=== PATIENT | female | born 1940 | race Caucasian/White ===

== ENCOUNTER → 2017-02-24 | Outpatient (CLI) | payer MEDICARE ==
--- NOTE | 2017-02-24 16:32 | WOMENS IMAGING REPORT ---
EXAM DESCRIPTION: BILAT SCREENING MAMMO W/CAD COMPLETED DATE/TIME: 02/24/2017 9:24 am REASON FOR STUDY: SCREENING MAMMO Z12.31 ENCNTR SCREEN MAMMOGRAM FOR MALIGNANT NEOPLASM OF VIVIAN COMPARISON: Multiple since 2008 TECHNIQUE: Standard craniocaudal and mediolateral oblique views of each breast recorded using digita l acquisition. LIMITATIONS: None. FINDINGS: Findings present which are benign by mammographic criteria. No suspicious masses, calcifi cations or architectural distortion. Pertinent benign findings: Stable benign bilateral breast calcifications Read with the assistance of CAD. .[facility] - R2 Cenova Version 1.3 .[facility] - R2 Cenova Version 1.3 .[facility] - R2 Cenova Version 2.4 .[facility] - R2 Cenova Version 2.4 .[facility] - R2 Bench Molder Apprentice Version 9.2 Benign mammographic findings may include one or more of the following: Smooth masses, popcorn/rim/co arse calcifications, asymmetries, post-procedure changes, and lesions with long-standing stability. IMPRESSION: BENIGN MAMMOGRAPHIC FINDINGS. BIRADS 2 BREAST DENSITY: c. The breasts are heterogeneously dense, which may obscure small masses. BIRAD: 2 BENIGN FINDING(S) RECOMMENDATION: ROUTINE SCREENING Please consider bilateral screening tomosynthesis in February 2018 given heterogeneously dense tissu e. COMMENT: The patient has been notified of the results by letter per SA requirements. Additional no tification policies are in place for contacting patient with suspicious or incomplete findings. Quality ID #225: The [employer] recommends an annual screening mammogram for women aged 40 years or over. This facility utilizes a reminder system to ensure that all patients receive reminder letters, and/or direct phone calls for appointments. This includes reminders for routine scr eening mammograms, diagnostic mammograms, or other Breast Imaging Interventions when appropriate. Th is patient will be placed in the appropriate reminder system. The [employer] (ACR) has developed recommendations for screening MRI of the breast s in certain patient populations, to be used in conjunction with mammography. Breast MRI surveillanc e may be appropriate for women with more than 20% lifetime risk of developing breast cancer as deter mined by genetic testing, significant family history of the disease, or history of mantle radiation f or Hodgkins Disease. ACR Practice Guidelines 2008. TECHNICAL DOCUMENTATION: FINDING NUMBER: (1) ASSESSMENT: (1) JOB ID: [id number] [employer]- All Rights Reserved
== END ==
LOC: RAD 09:05
PROVIDERS: ATTEND Family Medicine
DX: Z12.31 Encounter for screening mammogram for malignant neoplasm of breast (principal)
CPT/HCPCS: 77067; G0202

== ENCOUNTER → 2018-03-09 | Outpatient (CLI) | payer MEDICARE ==
--- NOTE | 2018-03-09 15:59 | WOMENS IMAGING REPORT ---
EXAM DESCRIPTION: BILAT SCREENING MAMMO W/CAD COMPLETED DATE/TIME: 03/09/2018 9:59 am REASON FOR STUDY: BILATERAL SCREENING MAMMO /Z12.31 Z12.31 ENCNTR SCREEN MAMMOGRAM FOR MALIGNANT NE OPLASM OF VIVIAN COMPARISON: Multiple since 2008 TECHNIQUE: Standard craniocaudal and mediolateral oblique views of each breast recorded using [employer] l acquisition. LIMITATIONS: None. FINDINGS: Findings present which are benign by mammographic criteria. No suspicious masses, calcifi cations or architectural distortion. Pertinent benign findings: Stable bilateral breast parenchymal calcifications Read with the assistance of CAD. .[facility] - R2 Cenova Version 1.3 .[facility] Imaging - R2 Cenova Version 1.3 .[facility] - R2 Cenova Version 2.4 .[facility] [place] R2 Cenova Version 2.4 .[facility] - R2 Bisque Placer Version 9.2 Benign mammographic findings may include one or more of the following: Smooth masses, popcorn/rim/co arse calcifications, asymmetries, post-procedure changes, and lesions with long-standing stability. IMPRESSION: BENIGN MAMMOGRAPHIC FINDINGS. BIRADS 2 BREAST DENSITY: c. The breasts are heterogeneously dense, which may obscure small masses. BIRAD: 2 BENIGN FINDING(S) RECOMMENDATION: ROUTINE SCREENING Please continue yearly bilateral screening mammography/tomosynthesis in March 2019 COMMENT: The patient has been notified of the results by letter per SA requirements. Additional no tification policies are in place for contacting patient with suspicious or incomplete findings. Quality ID #225: The [employer] recommends an annual screening mammogram for women aged 40 years or over. This facility utilizes a reminder system to ensure that all patients receive reminder letters, and/or direct phone calls for appointments. This includes reminders for routine scr eening mammograms, diagnostic mammograms, or other Breast Imaging Interventions when appropriate. Th is patient will be placed in the appropriate reminder system. The [employer] (ACR) has developed recommendations for screening MRI of the breast s in certain patient populations, to be used in conjunction with mammography. Breast MRI surveillanc e may be appropriate for women with more than 20% lifetime risk of developing breast cancer as deter mined by genetic testing, significant family history of the disease, or history of mantle radiation f or Hodgkins Disease. ACR Practice Guidelines 2008. TECHNICAL DOCUMENTATION: FINDING NUMBER: (1) ASSESSMENT: (1) JOB ID: [id number] [employer]- All Rights Reserved Reading location - IP/workstation name: [email or web address]
== END ==
LOC: WI 08:41
PROVIDERS: ATTEND Family Medicine
DX: Z12.31 Encounter for screening mammogram for malignant neoplasm of breast (principal)
CPT/HCPCS: 77067

== ENCOUNTER 2018-10-28 19:06 | Emergency (ER) | payer MEDICARE ==
[2018-10-28] MEDS ORDERED: ACETAMINOPHEN 325 MG TABLET PO ONE (19:40)
--- NOTE | 2018-10-28 20:43 | RADIOLOGY REPORT (SQ) ---
EXAM DESCRIPTION: CT HEAD WITHOUT IV CONTRAST COMPLETED DATE/TME: 10/28/2018 00:00 CLINICAL HISTORY: 78 years, Female, fall with injury COMPARISON: None. TECHNIQUE: Noncontrast CT of head was performed. Coronal and sagittal reformations were created. Images stored on PACS. All CT scanners at this facility use dose modulation, iterative reconstruction, and/or weight based dosing when appropriate to reduce radiation dose to as low as reasonably achievable (ALARA). [facility]: Dose Right [facility]: CareDose [facility]: Dose Right [facility]: Teradose 4D [facility]: Smart Technologies LIMITATIONS: None. FINDINGS: Evaluation of the brain parenchyma reveals mild periventricular and patchy subcortical white matter low attenuation. No acute intracranial hemorrhage, mass effect, or extra-axial fluid is seen. The ventricles and sulcal spaces are mildly enlarged. Globes and orbits show no acute traumatic. Paranasal sinuses and mastoid air cells are clear. 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 Calcifications are evident about the parasellar carotid arteries bilaterally. No depressed skull fractures are evident. However, there is a small right frontal scalp hematoma. IMPRESSION: Small right frontal scalp hematoma without underlying acute intracranial hemorrhage or mass effect. Mild chronic microvascular ischemic change and generalized atrophy. TECHNICAL DOCUMENTATION: Quality ID # [id number]: Final reports with documentation of one or more dose reduction techniques (e.g., Automated exposure control, adjustment of the mA and/or kV according to patient size, use of iterative reconstruction technique) copyright 2010 [employer]- All Rights Reserved
[2018-10-28 21:43] LABS: APPEARANCE,URINE CLEAR; BILIRUBIN,URINE NEGATIVE (NEGATIVE); COLOR,URINE YELLOW; GLUCOSE, URINE NEGATIVE (NEGATIVE); KETONES,URINE NEGATIVE (NEGATIVE); LEUKOCYTE ESTERASE,URINE MODERATE (NEGATIVE); NITRITE,URINE NEGATIVE (NEGATIVE); PROTEIN,URINE NEGATIVE (NEGATIVE); UROBILINOGEN,URINE NEGATIVE mg/dL (<2.0)
--- NOTE | 2018-10-28 21:51 | ER Document Report ---
ED Medical Screen (RME) - General Chief Complaint: Fall Stated Complaint: FALL Time Seen by Provider: 10/28/18 21:48 Primary Care Provider: TYE CHÁVEZ MD [Primary Care Provider] - Follow up as needed Notes: 78-year-old female chief complaint of an episode where she became dizzy, she clarifies that she felt lightheaded, weak, this caused her to fall striking her head on the cement. She denies tripping/mechanical fall. She has hematoma and abrasion to the right upper forehead area, she also has an injury to the right hand with some bruising. She denies any other locations of pain. She is on baby aspirin but no other blood thinners. She denies chest pain, shortness of breath. Past medical history includes CAD with stent. TRAVEL OUTSIDE OF THE [place] IN LAST 30 DAYS: No - Related Data Allergies/Adverse Reactions: No Known Allergies Allergy (Unverified 06/22/14 14:27) Past Medical History - Past Medical History Cardiac Medical History: Reports: Hx Coronary Artery Disease, Hx Hypercholesterolemia, Hx Hypertension - CONTROLLED Denies: Hx Heart Attack Pulmonary Medical History: Denies: Hx Asthma Neurological Medical History: Denies: Hx Cerebrovascular Accident, Hx Seizures Renal/ Medical History: Denies: Hx Peritoneal Dialysis GI Medical History: Reports: Hx Gastritis, Hx Hiatal Hernia. Denies: Hx Hepatitis, Hx Ulcer Infectious Medical History: Denies: Hx Hepatitis Past Surgical History: Reports: Hx Cardiac Surgery - stent x1, Hx Hysterectomy. Denies: Hx Mastectomy, Hx Open Heart Surgery, Hx Pacemaker - Immunizations Hx Diphtheria, Pertussis, Tetanus Vaccination: Yes Physical Exam - Vital signs Vitals: Temp Pulse Resp BP Pulse Ox 97.5 F 65 20 156/69 H 98 10/28/18 19:26 10/28/18 19:26 10/28/18 19:26 10/28/18 19:26 10/28/18 19:26 - HEENT Head: No: Atraumatic - Large abrasion with hematoma over the right upper forehead, no open wounds otherwise or other traumatic findings - Cardiovascular Rhythm: Regular. No: Tachycardia Heart sounds: Normal auscultation, S1 appreciated, S2 appreciated Course - Re-evaluation Re-evalutation: Because patient had a fall from lightheadedness and weakness (which is not characteristic for her), work-up initiated. This is not reported to be simply a mechanical fall. I have greeted and performed a rapid initial assessment of this patient. A comprehensive ED assessment and evaluation of the patient, analysis of test results and completion of the medical decision making process will be conducted by additional ED providers. - Vital Signs Vital signs: Temp Pulse Resp BP Pulse Ox 97.5 F 65 20 156/69 H 98 10/28/18 19:26 10/28/18 19:26 10/28/18 19:26 10/28/18 19:26 10/28/18 19:26 - Laboratory Laboratory results interpreted by me: 10/28/18 21:22 Ur Leukocyte Esterase MODERATE H Doctor's Discharge - Discharge Referrals: TYE CHÁVEZ MD [Primary Care Provider] - Follow up as needed
--- NOTE | 2018-10-28 22:33 | RADIOLOGY REPORT (SQ) ---
EXAM DESCRIPTION: XR HAND 3 OR MORE VIEWS COMPLETED DATE/TME: 10/28/2018 21:48 CLINICAL HISTORY: 78 years, Female, fall,pain COMPARISON: None. NUMBER OF VIEWS: Three TECHNIQUE: Frontal, oblique, and lateral radiographs of the right hand were obtained LIMITATIONS: None. FINDINGS: Severe first CMC joint arthrosis is noted, there is minimal joint space narrowing and marginal osteophyte formation. Additional mild degenerative changes are noted about the DIP joints of the second through fifth digits. No acute fracture or dislocation is evident. IMPRESSION: No acute osseous anomaly. Degenerative changes, as above. copyright 2010 [employer]- All Rights Reserved
[2018-10-28 22:36] LABS: ABSOLUTE BASOPHILS # (AUTO) 0.1 10^3/uL (0.0-0.2); ABSOLUTE EOSINOPHILS # (AUTO) 0.1 10^3/uL (0.0-0.6); ABSOLUTE LYMPHOCYTES (AUTO) 2.7 10^3/uL (0.5-4.7); ABSOLUTE MONOCYTES (AUTO) 0.7 10^3/uL (0.1-1.4); BASOPHILS % (AUTO) 0.7 % (0-2); EOSINOPHILS % (AUTO) 1.6 % (0-6); HEMATOCRIT 38.5 % (36.0-47.0); HEMOGLOBIN 12.8 g/dL (12.0-15.5); LYMPHOCYTES % (AUTO) 31.5 % (13-45); MEAN CORPUSCULAR HEMOGLOBIN 28.5 pg (27.0-33.4); MEAN CORPUSCULAR HGB CONC 33.4 g/dL (32.0-36.0); MEAN CORPUSCULAR VOLUME 86 fl (80-97); MONOCYTES % (AUTO) 7.7 % (3-13); PLATELET COUNT 269 10^3/uL (150-450); RED CELL DISTRIBUTION WIDTH 13.5 % (11.5-14.0); SEGMENTED NEUTROPHILS % (AUTO) 58.5 % (42-78); TOTAL CELLS COUNTED % (AUTO) 100 %; WHITE BLOOD COUNT 8.5 10^3/uL (4.0-10.5)
--- NOTE | 2018-10-28 22:44 | RADIOLOGY REPORT (SQ) ---
EXAM DESCRIPTION: XR CHEST 1 VIEW COMPLETED DATE/TME: 10/28/2018 21:48 CLINICAL HISTORY: 78 years Female, lightheaded, weak COMPARISON: None. NUMBER OF VIEWS/TECHNIQUE: 1/AP FINDINGS: Indeterminate 1.4 cm nodular opacity at the right upper hemithorax may indicate atypical benign calcified costochondral cartilage; cannot exclude neoplasm. Adequate lung volume, normal cardiac silhouette, and intact bony thorax. IMPRESSION: Indeterminate 1.4 cm nodular opacity at the right upper hemithorax may indicate atypical benign calcified costochondral cartilage; cannot exclude neoplasm. Recommend comparison with prior exams or CT of the chest.
[2018-10-28 22:56] LABS: ANION GAP 11 (5-19); BLOOD UREA NITROGEN 27 mg/dL (7-20); CALCIUM 9.7 mg/dL (8.4-10.2); CARBON DIOXIDE 27 mmol/L (22-30); CHLORIDE 96 mmol/L (98-107); GLUCOSE 97 mg/dL (75-110); POTASSIUM 4.3 mmol/L (3.6-5.0)
--- NOTE | 2018-10-29 03:04 | ER Document Report ---
ED General - General Chief Complaint: Fall Stated Complaint: FALL Time Seen by Provider: 10/28/18 21:48 Primary Care Provider: TYE CHÁVEZ MD [Primary Care Provider] - 11/01/18 Notes: Patient is a pleasant 78-year-old female who presents with complaint of becoming dizzy and falling and hitting her on the ground. She denies loss of conscious. She has pain and swelling to the right side of her head and face. She denies any pain with extraocular motion. She denies vomiting. She says that today she is noticed that when she stands up she becomes more dizzy or lightheaded. She has been drinking water. She was outside some today in the heat. She denies any focal weakness or numbness into extremities. No recent infections or fevers. No other complaints at this time. She denies hurting her neck or back. No pain in her extremities or torso. TRAVEL OUTSIDE OF THE [place] IN LAST 30 DAYS: No - Related Data Allergies/Adverse Reactions: No Known Allergies Allergy (Unverified 06/22/14 14:27) Past Medical History - Social History Smoking Status: Never Smoker Frequency of alcohol use: None Drug Abuse: None Family History: Reviewed & Not Pertinent Patient has suicidal ideation: No Patient has homicidal ideation: No - Past Medical History Cardiac Medical History: Reports: Hx Coronary Artery Disease, Hx Hypercholesterolemia, Hx Hypertension - CONTROLLED Denies: Hx Heart Attack Pulmonary Medical History: Denies: Hx Asthma Neurological Medical History: Denies: Hx Cerebrovascular Accident, Hx Seizures Renal/ Medical History: Denies: Hx Peritoneal Dialysis GI Medical History: Reports: Hx Gastritis, Hx Hiatal Hernia. Denies: Hx Hepatitis, Hx Ulcer Infectious Medical History: Denies: Hx Hepatitis Past Surgical History: Reports: Hx Cardiac Surgery - stent x1, Hx Hysterectomy. Denies: Hx Mastectomy, Hx Open Heart Surgery, Hx Pacemaker - Immunizations Hx Diphtheria, Pertussis, Tetanus Vaccination: Yes Review of Systems - Review of Systems Notes: My Normal Review Basic REVIEW OF SYSTEMS: CONSTITUTIONAL : Denies fever, chills, or sweats. Denies recent illness. EENT: Denies eye, ear, throat, or mouth pain or symptoms. Denies nasal or sinus congestion. CARDIOVASCULAR: Denies chest pain. RESPIRATORY: Denies cough, cold, or chest congestion. Denies shortness of breath, difficulty breathing, or wheezing. GASTROINTESTINAL: Denies abdominal pain. Denies nausea, vomiting, or diarrhea. GENITOURINARY: Denies difficulty urinating, painful urination, burning, frequency, or blood in urine. MUSCULOSKELETAL: Denies neck or back pain or joint pain or swelling. SKIN: Denies rash or skin lesions. HEMATOLOGIC : Takes 81 mg aspirin daily. NEUROLOGICAL: Denies altered mental status or loss of consciousness. Denies weakness or paralysis or loss of use of either side. Denies problems with gait or speech. Denies sensory or motor loss. ALL OTHER SYSTEMS REVIEWED AND NEGATIVE. Physical Exam - Vital signs Vitals: Temp Pulse Resp BP Pulse Ox 97.5 F 65 20 156/69 H 98 10/28/18 19:26 10/28/18 19:26 10/28/18 19:26 10/28/18 19:26 10/28/18 19:26 - Notes Notes: General Appearance: Well nourished, alert, cooperative, no acute distress, no obvious discomfort. Vitals: reviewed, See vital signs table. Head: Patient does have a small amount of bruising and swelling just lateral to the right eye forehead. Patient has full extraocular motion without pain. Patient is able to fully open and close her mouth without pain. Eyes: PERRL, EOMI, Conjuctiva clear Mouth: No decreasd moisture Throat: No tonsillar inflammation, No airway obstruction, No lymphadenopathy Neck: Supple, no neck tenderness Lungs: No wheezing, No rales, No rhonci, No accessory muscle use, good air exchange bilaterally. Heart: Normal rate, Regular rythm, No murmur, no rub Abdomen: Normal BS, soft, No rigidity, No abdominal tenderness, No guarding, no rebound Extremities: strength 5/5 in all extremities, good pulses in all extremities, no swelling or tenderness in the extremities Skin: warm, dry, appropriate color, no rash Neuro: speech clear, oriented x 3, normal affect, responds appropriately to questions. Cranial nerves II through XII are intact. Distal sensation intact. Patient moves all extremities without difficulty. Patient has become a little bit dizzy upon first standing. No focal neurologic deficits on exam. Course - Re-evaluation Re-evalutation: 10/29/18 06:02 Patient looks well. I feel she safe to be discharged home. She is little bit dizzy upon standing. Being that it was in the mid 90s yesterday and patient was outside some I informed her that this could be related will bit of dehydration hypovolemia from the heat. I informed her that we could give put an IV and give her IV fluids where she can orally rehydrate. Patient says she does not want to stay in hospital a longer prefers to orally rehydrate at home. She says she would return if she had worsening recurrent dizziness, recurrent falls, or feels unwell. CT scan is normal-appearing. The patient looks well. Feel she is safe to be discharged home. Patient's neighbor is at bedside and said she will help look after her. Dictation of this chart was performed using voice recognition software; therefore, there may be some unintended grammatical errors. - Vital Signs Vital signs: Temp Pulse Resp BP Pulse Ox 97.6 F 58 L 16 137/71 H 96 10/29/18 03:52 10/29/18 03:52 10/29/18 03:52 10/29/18 03:52 10/29/18 03:52 - Laboratory Result Diagrams: 10/28/18 22:12 10/28/18 22:12 Laboratory results interpreted by me: 10/28/18 10/28/18 21:22 22:12 Sodium 134.0 L Chloride 96 L BUN 27 H Est GFR ( Amer) 51 L Est GFR (Non-Af Amer) 42 L Ur Leukocyte Esterase MODERATE H - EKG Interpretation by Me Additional EKG results interpreted by me: 10/29/18 03:03 EKG is reviewed and interpreted by me. EKG shows sinus rhythm with rate of [address] segment elevation or depression. No ischemic T wave inversions. NC interval slightly prolonged. QRS duration and QT intervals are within normal range. No old EKG available for comparison at this time. Discharge - Discharge Clinical Impression: Dizziness Minor head injury without loss of consciousness Qualifiers: Encounter type: initial encounter Qualified Code(s): S09.90XA - Unspecified injury of head, initial encounter Condition: Good Disposition: HOME, SELF-CARE Additional Instructions: Head Injury Precautions At this point, there is no evidence that your head injury is serious. Observation is necessary, however. Take only clear liquids for the first few hours, unless told otherwise by the doctor. If no pain medication was prescribed, you may take acetaminophen according to the directions on the bottle. Do not take any medication that may alter your level of alertness (unless you've discussed it with the doctor first). Limit activity for the first 24 hours. Bed rest is best. During the first 24 hours, check to see approximately every two to three hours that the patient is easily arousable, responds normally, and can perform common tasks such as walking without difficulty. Contact your doctor or go to the hospital if any of the following things occur: Persistent vomiting, difficulty in arousing the patient, worsening or continued headache, or failure to improve as expected. Head injuries can cause symptoms that persist for a few days or even a few weeks. Please drink lots of non-caffeinated liquids and stay well-hydrated. Please stay out of the heat for the next 24 hours. Please take your time upon standing. Do not stand up quickly. If you feel dizzy then you should sit back down immediately. Please return to ER if you have worsening of her symptoms, having episode of passing out, headache, vomiting, or feel unwell in any way. Referrals: TYE CHÁVEZ MD [Primary Care Provider] - 11/01/18
[2018-10-29 04:01] VITALS: BP 137/71
--- NOTE | 2018-10-29 12:38 | EKG REPORT ---
SEVERITY:- NORMAL ECG - SINUS RHYTHM : Confirmed by: Agustin Flores 29-Oct-2018 12:38:17
== END 2018-10-29 04:01 | disposition home or self-care (01) ==
LOC: ER 19:06
DX: S09.90XA Unspecified injury of head, initial encounter (principal); R42 Dizziness and giddiness; W18.30XA Fall on same level, unspecified, initial encounter; I25.10 Atherosclerotic heart disease of native coronary artery without angina pectoris; E78.00 Pure hypercholesterolemia, unspecified; I10 Essential (primary) hypertension; Z90.710 Acquired absence of both cervix and uterus
CPT/HCPCS: 93005; 99284; 36415; 87086; 85025; 80048; 81001; 84484; 71045; 73130; 70450; 93010; A9270

== ENCOUNTER 2019-01-17 06:51 | Day surgery (SDC) | payer MEDICARE ==
[~2019-01-17 06:51] MED LIST: BUPIVACAINE HCL 0.75% INJ/PF (7.5 MG/1 ML) 10 ML SDV OD PRN; FENTANYL CITRATE INJ/PF 100 MCG/2 ML AMPUL ONE; KETOROLAC TROMETHAMINE 0.45% 4 DROP/0.4 ML DROPERETTE OD PRN; LIDOCAINE 4% INJ/PF (40 MG/ML) 5 ML AMPUL OD PRN; MIDAZOLAM 2 MG/2 ML INJ ONE
[2019-01-17] MEDS ORDERED: MIDAZOLAM 2 MG/2 ML INJ ONE (07:11)
[2019-01-17] MEDS: TETRACAINE HCL 0.5% OPH SOLN 4 ML OD PRN ×3 (07:14→07:41)
[2019-01-17] MEDS: BESIFLOXACIN HCL 0.6% OPH SUSP 5 ML BOTTLE OD PRN ×4 (07:14→08:28)
[2019-01-17] MEDS: TROPICAMIDE 1% OPH SOLN 3 ML OD PRN ×3 (07:15→07:34)
[2019-01-17] MEDS: CYCLOPENTOLATE 0.2%/PHENYLEPHRINE 1% OPH SOLN 2 ML OD PRN ×3 (07:15→07:34)
[2019-01-17] MEDS ORDERED: LIDOCAINE 1% INJ-PF (10 MG/ML) 30 ML SDV ONE (07:19)
[2019-01-17] MEDS: EPINEPHRINE INJ/PF 1 MG/1 ML AMPULE ONE ×2 (08:14)
[2019-01-17] MEDS: CHONDR SU A NA/HYALUR INTRAOC KIT (SURGICARE) ONE ×2 (08:14)
[2019-01-17] MEDS: DORZOLAMIDE HCL 2%/TIMOLOL MALEAT 0.5% OPH SOLN 10 ML OD PRN ×2 (08:28)
--- NOTE | 2019-01-17 13:36 | Operative Report ---
Operative Report-[facility] Operative Report: DATE OF SURGERY: January 17, 2019 PREOPERATIVE DIAGNOSIS: CATARACT, RIGHT EYE. POSTOPERATIVE DIAGNOSIS: CATARACT, RIGHT EYE. PROCEDURE PERFORMED: PHACOEMULSIFICATION WITH POSTERIOR CHAMBER INTRAOCULAR LENS, RIGHT EYE. Intraocular Lens Model : SN 6 AT5 22.5 Total Phaco Time: 6.76 CDE SURGEON: JOSE JARAMILLO MD ANESTHESIA: TOPICAL WITH MAC. INDICATIONS FOR SURGERY: Difficulty driving at night. PROCEDURE: The patient was brought to the Operating Room and placed in a seated position. a lid speculum was placed in the eye. the 0.180, and 270 degree axis of the cornea was marked with a toric marker. the patient was placed in a reclining position. Following tetracaine drops, topical anesthesia was administered. This consisted of instrument wipe pledgets soaked in a solution of 4% Xylocaine mixed with 0.75% Marcaine in a 1:2 ratio. A 2 x 1 cm pledget was placed in the superior fornix. A 1 x 1 cm pledget was placed in the inferior fornix. The eye was patched shut for 5 minutes. The patch was removed. The eye was sterilely prepped and draped in the usual manner. Lid speculum was placed in the eye. The pledgets were removed. 4-0 black silk sutures were placed around the superior and the inferior rectus muscles to be used as traction. A conjunctival peritomy was made at the 10 o'clock position. Hemostasis was obtained with bipolar cautery. A posterior limbal groove was created using a crescent knife and dissected anteriorly towards the cornea. A sharp point blade was used to create a para centesis site at the 2 o'clock position. 0.2 cc non preserved Lidocaine was injected into the anterior chamber. A 2.4 mm keratome was used to enter the anterior chamber through the groove. Viscoelastic was injected into the anteriorchamber. An anterior capsulotomy was performed using Utrata forceps in acapsulorrhexis fashion. Hydrodissection and hydrodelineation were performed. Phacoemulsification was performed in [id number] technique. Following this, the I/A unit was used to remove residual cortex. Viscoelastic was injected into the capsular bag. The Intraocular lens was placed in the capsular bag. The 4 degree axis of the eye was marked using a toric marker and the previously marked sites as reference. The lens was centered at this axis. The I/A unit was used to remove residual viscoelastic. The wound was seen to be watertight under high and low pressure, and no sutures were placed. The intraocular lens was well centered. The pressure was adjusted in the eye to normal pressure. The 4-0 black silk sutures and lid speculum were removed. The eye was shielded after Besivance and Cosopt drops were placed. The patient tolerated the procedure well and was sent to the Recovery Room in good condition.
--- NOTE | 2019-01-17 13:37 | PDOC DISCHARGE SUMMARY ---
Discharge Summary-[facility] Discharge Summary: DATE: 01/17/2019 FINAL DIAGNOSIS: CATARACT, RIGHT EYE PROCEDURE: Cataract surgery with toric intraocular lens implant right eye HOSPITAL COURSE: The patient will be discharged to home. The patient is instructed to resume preoperative medications, take Tylenol as needed for discomfort, to keep the eye shielded, They should use the prescribed antibiotic, NSAID, and steroid at 3 PM and 8 PM., and to follow up in my office in 1 day.
== END 2019-01-17 09:21 | disposition home or self-care (01) ==
LOC: SC 06:51
PROVIDERS: ATTEND Ophthalmology
DX: H25.811 Combined forms of age-related cataract, right eye (principal); H04.123 Dry eye syndrome of bilateral lacrimal glands; Z96.1 Presence of intraocular lens; I10 Essential (primary) hypertension; E78.00 Pure hypercholesterolemia, unspecified; K21.9 Gastro-esophageal reflux disease without esophagitis; Z79.899 Other long term (current) drug therapy; Z79.82 Long term (current) use of aspirin
CPT/HCPCS: 66984; J2250; J3490 ×5; A9270; J0171; J3010

== ENCOUNTER → 2019-03-16 | Outpatient (CLI) | payer MEDICARE ==
--- NOTE | 2019-03-16 11:51 | WOMENS IMAGING REPORT ---
EXAM DESCRIPTION: BONE DENSITY HIP/SPINE COMPLETED DATE/TIME: 03/16/2019 10:14 am REASON FOR STUDY: Z78.0 ASYMPTOMATIC MENOPAUSAL STATE Z12.31 ENCNTR SCREEN MAMMOGRAM FOR MALIGNANT NEOPLASM OF VIVIAN Z78.0 ASYMPTOMATIC MENOPAUSAL STATE COMPARISON: None. TECHNIQUE: Dual-Energy X-ray Absorptiometry (DEXA) of the AP Spine and Hip. LIMITATIONS: None. FINDINGS: LUMBAR SPINE: The bone mineral density (BMD) measured from L1-L4 in the AP projection correlates with a T-score of +2.7, which is normal as defined by the World Health Organization. Please note this includes vertebr al body endplate sclerosis and facet arthropathy BMD Change vs Baseline: N/A HIP: The bone mineral density (BMD) measured in the left femoral neck at the hip correlates with a T-score of -1.8, which is osteopenic as defined by the World Health Organization. BMD Change vs Baseline: N/A 10 year Fracture Risk Assessment: Major Osteoporotic Fracture: 15% Hip Fracture: 3.9% IMPRESSION: 1. LUMBAR SPINE WHO CLASSIFICATION: Normal 2. HIP WHO CLASSIFICATION: Osteopenic OVERALL ASSESSMENT: WHO CLASSIFICATION: Osteopenic COMMENT: The World Health Organization defines low BMD as follows: T-score: Normal: Greater than -1.0 Osteopenia: Between -1.0 and -2.5 Osteoporosis: Less than -2.5 without fractures Established osteoporosis: Less than -2.5 with fractures In general, you may wish to consider: Diagnosis Treatment Follow-up DEXA Normal BMD Prevention 2-3 years Osteopenia Prevention/Therapy 1-2 years Osteoporosis Therapy Yearly TECHNICAL DOCUMENTATION: JOB ID: [id number] 1893 [employer]- All Rights Reserved Reading location - IP/workstation name: [email or web address]
--- NOTE | 2019-03-16 15:33 | WOMENS IMAGING REPORT ---
EXAM DESCRIPTION: BILAT SCREENING MAMMO W/CAD COMPLETED DATE/TIME: 03/16/2019 10:14 am REASON FOR STUDY: Z12.31 ENCOUNTER FOR SCREENING MAMMOGRAM FOR MALIGNANT NEOPLASM OF BREAST Z12.31 ENCNTR SCREEN MAMMOGRAM FOR MALIGNANT NEOPLASM OF VIVIAN Z78.0 ASYMPTOMATIC MENOPAUSAL STATE COMPARISON: Multiple since 2010 EXAM PARAMETERS: Standard craniocaudal and mediolateral oblique views of each breast recorded using digital acquisition. Read with the assistance of CAD. .[facility] - R2 [employer] Version 9.2 LIMITATIONS: None. FINDINGS: Findings present which are benign by mammographic criteria. No suspicious masses, calcifi cations or architectural distortion. Pertinent benign findings: Benign bilateral breast parenchymal calcifications Benign mammographic findings may include one or more of the following: Smooth masses, popcorn/rim/co arse calcifications, asymmetries, post-procedure changes, and lesions with long-standing stability. IMPRESSION: BENIGN MAMMOGRAPHIC FINDINGS. BIRADS 2 BREAST DENSITY: c. The breasts are heterogeneously dense, which may obscure small masses. BIRAD: ASSESSMENT: 2 BENIGN FINDING(S) RECOMMENDATION: ROUTINE SCREENING Please continue yearly bilateral screening mammography/tomosynthesis in March 2020. COMMENT: The patient has been notified of the results by letter per MQSA requirements. Additional no tification policies are in place for contacting patient with suspicious or incomplete findings. Quality ID #[id number]: The [employer] recommends an annual screening mammogram for women aged 40 years or over. This facility utilizes a reminder system to ensure that all patients receive reminder letters, and/or direct phone calls for appointments. This includes reminders for routine scr eening mammograms, diagnostic mammograms, or other Breast Imaging Interventions when appropriate. Th is patient will be placed in the appropriate reminder system. TECHNICAL DOCUMENTATION: FINDING NUMBER: (1) ASSESSMENT: (1) JOB ID: [id number] [employer]- All Rights Reserved Reading location - IP/workstation name: [email or web address]
== END ==
LOC: WI 09:53
PROVIDERS: ATTEND Family Medicine
DX: Z12.31 Encounter for screening mammogram for malignant neoplasm of breast (principal); M85.88 Other specified disorders of bone density and structure, other site; Z78.0 Asymptomatic menopausal state
CPT/HCPCS: 77067; 77080

== ENCOUNTER → 2019-05-06 | Outpatient (CLI) | payer MEDICARE ==
--- NOTE | 2019-05-06 15:31 | RADIOLOGY REPORT (SQ) ---
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 TECHNIQUE: Sagittal and Axial imaging includes T1, T2, STIR and gradient echo sequences. Coronal T2/ HASTE imaging. LIMITATIONS: None. FINDINGS: VISUALIZED UPPER ABDOMEN: Limited evaluation. No acute or suspicious findings suggested. SEGMENTATION: No transitional anatomy. The lowest well-developed disc space is labeled L5-S1. ALIGNMENT: Degenerative convex leftward lumbar curvature VERTEBRAE: Intact. BONE MARROW: Normal. No marrow replacement or reactive changes. DISC SIGNAL: Diffuse decreased T2 weighted intervertebral disc signal POSTERIOR ELEMENTS: Generally intact. No pars defect evident. HARDWARE: None in the spine. CORD AND CONUS: Normal in size and signal intensity. Conus at the mid L2 level. SOFT TISSUES: No aortic aneurysm seen. No bulky retroperitoneal adenopathy or mass. No paraspinal mas s or fluid. T10-11: At the upper edge of the field of view. Moderate left, mild right foraminal narrowing from facet hypertrophy and mild posterior disc bulging. Borderline central canal narrowing. T11-12: Mild diffuse posterior disc bulging, moderate facet hypertrophy left greater than right. No right foraminal narrowing. Mild central canal narrowing, moderate left foraminal narrowing. T12-L1: Broad diffuse posterior disc bulging is present right greater than left. Moderate right fac et hypertrophy with high-grade right foraminal narrowing. Mild central canal narrowing. No signific ant left foraminal stenosis L1-L2: Broad diffuse posterior disc bulging, moderate bilateral facet hypertrophy. Mild central christine l stenosis. Mild bilateral inferior foraminal narrowing without exiting L1 nerve root impingement. L2-L3: Broad diffuse posterior disc bulging, moderate bilateral facet hypertrophy. Mild central christine l stenosis. Moderate to high-grade right foraminal narrowing with partial effacement of fat around t he exiting right L2 nerve root. Mild left foraminal narrowing. L3-L4: Broad diffuse posterior disc bulging is present moderate bilateral facet hypertrophy. Mild to moderate central canal narrowing. Mild bilateral inferior foraminal narrowing without exiting L3 ne rve root impingement. L4-L5: [id number] central canal narrowing results from broad diffuse posterior disc bulging lef t greater than right and bulky bilateral facet hypertrophy left greater than right. Mild right, high -grade left foraminal narrowing with partial effacement of the fat around the exiting left L4 nerve r oot. L5-S1: Broad diffuse posterior disc bulge and bony spurring left greater than right. Moderate bilate ral facet hypertrophy. Mild central canal stenosis. Moderate right, moderate to high-grade left for aminal narrowing with partial effacement of the fat around the exiting L5 nerve roots bilaterally SACRUM: Visualized upper sacrum intact. OTHER: No other significant findings. IMPRESSION: Diffuse degenerative changes as above. TECHNICAL DOCUMENTATION: JOB ID: [id number] [employer]- All Rights Reserved Reading location - IP/workstation name: [email or web address]
== END ==
LOC: RAD 14:13
PROVIDERS: ATTEND Physician Assistant
DX: M47.26 Other spondylosis with radiculopathy, lumbar region (principal)
CPT/HCPCS: 72148

== ENCOUNTER → 2020-03-18 | Outpatient (CLI) | payer MEDICARE ==
--- NOTE | 2020-03-18 10:53 | WOMENS IMAGING REPORT ---
EXAM DESCRIPTION: BILAT SCREENING MAMMO W/CAD IMAGES COMPLETED DATE/TIME: 03/18/2020 10:02 am REASON FOR STUDY: Z12.31 Z12.31 ENCOUNTER FOR SCREENING MAMMOGRAM FOR MALIGNANT NEOPLASM OF B Z12.31 ENCNTR SCREEN MAMMOGRAM FOR MALIGNANT NEOPLASM OF VIVIAN COMPARISON: Priors dating back to 2017. EXAM PARAMETERS: Standard craniocaudal and mediolateral oblique views of each breast recorded using digital acquisition. Read with the assistance of CAD. .[facility] - R2 [employer] Version 9.2 LIMITATIONS: None. FINDINGS: No suspicious masses, suspicious calcifications or architectural distortion. No areas of c oncern. IMPRESSION: NEGATIVE MAMMOGRAM. BIRADS 1 BREAST DENSITY: b. There are scattered areas of fibroglandular density. BIRAD: ASSESSMENT: 1 NEGATIVE RECOMMENDATION: ROUTINE SCREENING COMMENT: The patient has been notified of the results by letter per MQSA requirements. Additional no tification policies are in place for contacting patient with suspicious or incomplete findings. Quality ID #[id number]: The [employer] recommends an annual screening mammogram for women aged 40 years or over. This facility utilizes a reminder system to ensure that all patients receive reminder letters, and/or direct phone calls for appointments. This includes reminders for routine scr eening mammograms, diagnostic mammograms, or other Breast Imaging Interventions when appropriate. Th is patient will be placed in the appropriate reminder system. TECHNICAL DOCUMENTATION: FINDING NUMBER: (1) ASSESSMENT: (1) JOB ID: [id number] 2010 [employer]- All Rights Reserved Reading location - IP/workstation name: [email or web address]
== END ==
LOC: WI 09:42
PROVIDERS: ATTEND Family Medicine
DX: Z12.31 Encounter for screening mammogram for malignant neoplasm of breast (principal)
CPT/HCPCS: 77067